=== PATIENT | male | born 1970 | race Caucasian/White ===

== ENCOUNTER → 2018-09-23 14:30 | Outpatient (CLI) | payer OTHER, SELFPAY ==
--- NOTE | 2018-09-23 | DI.RAD.S_ITS ---
PROCEDURE: XR KNEE LT 3V INDICATIONS: CHRONIC PAIN OF LEFT KNEE AND KNEE TECHNIQUE: 3 views of the knee were acquired. COMPARISON: None. FINDINGS: Bones: No fractures or dislocations. No suspicious bony lesions. Soft tissues: No joint effusion. No suspicious soft tissue calcifications. IMPRESSION: Negative examination. If the patient's pain or other symptoms persist, consider further evaluation with MRI Dictated by: Burak Gutierrez M.D. on 09/23/2018 at 16:21 Approved by: Burak Gutierrez M.D. on 09/23/2018 at 16:22
--- NOTE | 2018-09-23 | DI.RAD.S_ITS ---
PROCEDURE: XR ELBOW RT MIN 3V INDICATIONS: CHRONIC PAIN OF LEFT KNEE AND KNEE TECHNIQUE: 3 views of the elbow were acquired. COMPARISON: None. FINDINGS: Bones: No fractures or dislocations. No suspicious bony lesions. Chronic prominent spurring and subchondral sclerosis primarily at the ulnotrochlear articulation . There is mild joint space narrowing. Soft tissues: No elbow joint effusion. No suspicious soft tissue calcifications. 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 Dictated by: Burak Gutierrez M.D. on 09/23/2018 at 16:19 Approved by: Burak Gutierrez M.D. on 09/23/2018 at 16:21
== END ==
PROVIDERS: Visit Provider Family Medicine
DX: M25.562 Pain in left knee (principal); M19.021 Primary osteoarthritis, right elbow; M25.721 Osteophyte, right elbow; G89.29 Other chronic pain
CPT/HCPCS: 73080; 73562

== ENCOUNTER → 2020-02-23 11:34 | Outpatient (CLI) | payer OTHER, SELFPAY ==
--- NOTE | 2020-02-23 | DI.RAD.S_ITS ---
PROCEDURE: XR FOOT LT MIN 3V INDICATIONS: LEFT ANKLE PAIN TECHNIQUE: 3 views of the foot were acquired. COMPARISON: None. FINDINGS: Bones: No fractures or dislocations. No suspicious bony lesions. Moderate to severe first MTP joint degeneration. Chronic corticated ossicles project at the tip of the lateral malleolus probably from prior remote trauma. Soft tissues: No tibiotalar joint effusion. Achilles tendon appears normal. IMPRESSION: Degenerative changes as above. No acute fracture If the patient's pain or other symptoms persist, consider further evaluation with MRI Dictated by: Burak Gutierrez M.D. on 02/23/2020 at 12:06 Approved by: Burak Gutierrez M.D. on 02/23/2020 at 12:08
== END ==
PROVIDERS: PCP Family Medicine; Referring Provider Family Medicine; Visit Provider Family Medicine
DX: M25.572 Pain in left ankle and joints of left foot (principal); M19.072 Primary osteoarthritis, left ankle and foot
CPT/HCPCS: 73630

== ENCOUNTER → 2020-03-27 19:26 | Outpatient (CLI) | payer OTHER, SELFPAY ==
--- NOTE | 2020-03-27 19:37 | DI.RAD.S_ITS ---
PROCEDURE: XR ANKLE LT MIN 3V INDICATIONS: CHRONIC PAIN BOTH ANKLES TECHNIQUE: Three views of the ankle were acquired. COMPARISON: None. FINDINGS: Bones: No fractures or dislocations. Ankle mortise is normally aligned. Infuse accessory ossicles distal to the lateral malleolus. Spurring and minor joint space loss anteriorly at the tibiotalar joint. No suspicious bony lesions. Soft tissues: Moderate tibiotalar joint effusion. Achilles tendon appears normal. IMPRESSION: 1. Mild anterior tibiotalar joint space loss, moderate spur formation, and joint effusion. Dictated by: Ann Madrid M.D. on 03/28/2020 at 9:27 Approved by: Ann Madrid M.D. on 03/28/2020 at 9:28
--- NOTE | 2020-03-27 19:37 | DI.RAD.S_ITS ---
PROCEDURE: XR ANKLE RT MIN 3V INDICATIONS: CHRONIC PAIN OF BOTH ANKLES TECHNIQUE: Three views of the ankle were acquired. COMPARISON: None. FINDINGS: Bones: No fractures or dislocations. Ankle mortise is normally aligned. Mild degenerative spurring at the anterior tibiotalar joint. Moderately prominent unfused os trigonum. Accessory ossicle distal to the medial malleolus. Small corticated dystrophic calcification along the dorsal aspect of the anterior talus. No suspicious erosive changes. Joint spaces are maintained. No suspicious bony lesions. Soft tissues: No tibiotalar joint effusion. Achilles tendon appears normal. IMPRESSION: 1. Mild degenerative changes. 2. Accessory ossicles as described. Dictated by: Ann Madrid M.D. on 03/28/2020 at 9:25 Approved by: Ann Madrid M.D. on 03/28/2020 at 9:27
--- NOTE | 2020-03-27 19:38 | DI.RAD.S_ITS ---
PROCEDURE: XR FOOT RT MIN 3V INDICATIONS: CHRONIC PAIN , 2ND DIGIT TECHNIQUE: Three views of the foot were acquired. COMPARISON: [facility], CR, XR FOOT LT MIN 3V, 02/23/2020, 10:42. FINDINGS: Bones: No fractures or dislocations. Mild degenerative joint space loss and sclerosis at the 1st tarsometatarsal joint. Bipartite medial sesamoid bone. Minor degenerative changes at the 1st MTP joint. Unfused os trigonum. No suspicious bony lesions. Soft tissues: No tibiotalar joint effusion. Achilles tendon appears normal. IMPRESSION: Mild degenerative changes. Dictated by: Ann Madrid M.D. on 03/28/2020 at 9:23 Approved by: Ann Madrid M.D. on 03/28/2020 at 9:25
== END ==
PROVIDERS: PCP Family Medicine; Referring Provider Family Medicine; Visit Provider Family Medicine
DX: M25.571 Pain in right ankle and joints of right foot (principal); M25.572 Pain in left ankle and joints of left foot; G89.29 Other chronic pain
CPT/HCPCS: 73610; 73630

== ENCOUNTER → 2025-05-24 11:20 | Outpatient (CLI) | payer BC, SELFPAY ==
--- NOTE | 2025-05-24 11:23 | DI.CT.S_ITS ---
PROCEDURE: CT ELBOW RIGHT WITHOUT CON INDICATIONS: PAIN TECHNIQUE: Noncontrast 1-1.5 mm axial sections were acquired through the elbow joint, with coronal and sagittal reformats. COMPARISON: [facility] ([facility]), CR, XR ELBOW RT MIN 3V, 05/17/2025, 9:07. FINDINGS: Image quality: Excellent. No acute fracture or dislocation. Severe degenerative arthritis with [id number] cartilage loss and large marginal osteophytes. Additionally there is moderate effusion and multiple intra-articular bodies. The largest loose bodies are in the posterior compartment, 1 of which measures 1.8 centimeters in greatest dimension. No osseous erosion. Muscles and tendons are unremarkable by CT examination. IMPRESSION: Severe osteoarthritis with loose bodies and effusion. Dictated by: Hitesh Garcia M.D. on 05/24/2025 at 14:02 Approved by: Hitesh Garcia M.D. on 05/24/2025 at 14:04
== END ==
LOC: CT 11:22
PROVIDERS: PCP Family Medicine; Referring Provider Family Medicine; Visit Provider Family Medicine
DX: M19.021 Primary osteoarthritis, right elbow (principal); M24.021 Loose body in right elbow; M25.421 Effusion, right elbow; M25.521 Pain in right elbow; R93.7 Abnormal findings on diagnostic imaging of other parts of musculoskeletal system
CPT/HCPCS: 73200